=== PATIENT | female | born 1975 | race Caucasian/White ===

== ENCOUNTER 2016-09-22 10:46 | Emergency (ER) | payer MEDICAID ==
[2016-09-22 11:32] VITALS: TEMP 98.6; BMI 20.2
--- NOTE | 2016-09-22 12:39 | DIRPT ---
CLINICAL DATA: PIECE OF WOOD HIT THE MEDIAL SIDE OF HER LEFT ANKLE SEVERAL WEEKS AGO CAUSING PAIN AND BRUISING. YESTERDAY, PT TRIPPED OVER DAUGHTER AND HAD AN EXPLOSION OF PAIN GO THROUGH LEFT ANKLE. PAIN ON MEDIAL/POSTERIER SIDE OF LEFT ANKLE. EXAM: LEFT ANKLE COMPLETE - 3+ VIEW COMPARISON: None. FINDINGS: There is no evidence of fracture, dislocation, or joint effusion. There is no evidence of arthropathy or other focal bone abnormality. Soft tissues are unremarkable. No radiodense foreign body. IMPRESSION: Negative. Electronically Signed By: Sharonda Vicente M.D. On: 09/22/2016 12:37
--- NOTE | 2016-09-22 13:15 | EDPRACDOC ---
- General Information Chief Complaint: Ankle Pain Stated Complaint: L ANKLE PAIN Time Seen by Provider: 09/22/16 12:58 Information Source: Patient Mode of Arrival: Ambulance Home Medications: Home Medications Aripiprazole [Abilify] 10 mg PO DAILY 09/22/16 Atenolol/Chlorthalidone [Atenolol-Chlorthal Tab (50mg/25mg)] 1 tab PO DAILY 12/03 Gabapentin 300 mg PO TID 09/22/16 Meloxicam [Mobic] 7.5 mg PO BID #20 tab 09/22/16 Ondansetron HCl [Zofran] 8 mg PO BID 09/22/16 Quetiapine Fumarate [Seroquel] 50 mg PO QHS 09/22/16 Simvastatin 20 mg PO QHS 09/22/16 Tizanidine HCl [Zanaflex] 4 mg PO TID 09/22/16 Tramadol HCl [Ultram] 50 mg PO TID 09/22/16 Allergies/Adverse Reactions: Allergies Allergy/AdvReac Type Severity Reaction Status Date / Time No Known Allergies Allergy Verified 09/22/16 11:33 - History of Present Illness Onset: 2 WEEKS HPI: PT PRESENTS TODAY WITH LEFT ANKLE PAIN AND SWELLING X 2 WEEKS. PT STATES THAT SHE INVERTED IT 2 WEEKS AGO, THEN RE-INJURED IT LAST NIGHT. NO OTHER COMPLAINTS. Ankle Problem Location: Reports: Left, Lateral Mechanism: Reports: Inversion Circumstances: Reports: Fall Able to Bear Weight: Limited Pain Severity: Reports: Moderate Associated Signs & Symptoms: Reports: Swelling ED Past Medical History - History Reviewed Yes Nurses notes reviewed and agree except as marked - Patient Medical History Cardiac History: Reports: Hypertension GI/ History: Reports: Gastroesophageal Reflux Psychological History: Denies: Depression Additional Past Medical History: CHRONIC PAIN Surgical History: Reports: Cholecystectomy, Hysterectomy - Social Medical History Smoking Status: Heavy tobacco smoker (5 or more cigarettes/day or daily pipe/ cigar) EDM Review of Systems - Review of Systems ROS Negative Except as Marked: Yes All systems reviewed and were negative except as marked Constitutional: No Symptoms Reported Respiratory: No Symptoms Reported Cardiovascular: No Symptoms Reported Gastrointestinal: No Symptoms Reported Neurological: No Symptoms Reported Musculoskeletal: Ankle Integumentary: No Symptoms Reported - Physical Exam Constitutional: Alert (Awake), No apparent distress Oriented to: Time, Person, Place Last recorded Vital Signs: Last Vital Signs Temp 98.6 F 09/22/16 11:28 Pulse 121 H 09/22/16 11:28 Resp 18 09/22/16 11:28 BP 130/64 09/22/16 11:28 Pulse Ox 98 09/22/16 11:28 Oxygen Pulse Oxygen Saturation 98 O2 Device Room Air Oxygen Flow Rate Fraction of Inspired Oxygen ( FIO2) - HEENT Head: Normal Eye Exam: Normal Neck: Normal, Denies Pain, Midline - Respiratory/Cardiovascular Respiratory: Normal - CTA Cardiovascular: Normal - GI Palpation: Normal Tenderness: Non tender - Musculoskeletal Back: Normal Extremities: Other (MILD SWELLING TO LEFT ANKLE W/OUT APPARENT BRUISING/ DEFORMITY; PEDAL PULSES NORMAL;) - Integumentary Skin: Normal Lymphatics: Normal - Neurologic Cerebellar: Normal Mood Description: Normal Thought: Coherent Perception: Normal ED Ankle Problem Phys Exam - Musculoskeletal Ankle: Swelling, Moderate Tenderness Achilles Tendon: Normal Knee: Normal Lower Leg: Normal Foot: Normal Distal Function/Circulation: Normal - Integumentary Skin: Normal Lymphatics: Normal Decision Time to Discharge: 13:14 - Departure Disposition: Home Condition: Good Final Diagnosis: Ankle Sprain Instructions: RICE Therapy (ED) Education/Counseling Given To: Patient Education/Counseling Given Regarding: Diagnosis, Treatment, Follow Up Referrals: None,No Provider [Primary Care Provider] - One Week Larry Dominguez MD [Staff Physician] - One Week Prescriptions: New Meloxicam [Mobic] 7.5 mg PO BID #20 tab No Action Quetiapine Fumarate [Seroquel] 50 mg PO QHS Atenolol/Chlorthalidone [Atenolol-Chlorthal Tab (50mg/25mg)] 1 tab PO DAILY Aripiprazole [Abilify] 10 mg PO DAILY Tramadol HCl [Ultram] 50 mg PO TID Tizanidine HCl [Zanaflex] 4 mg PO TID Ondansetron HCl [Zofran] 8 mg PO BID Gabapentin 300 mg PO TID Simvastatin 20 mg PO QHS Additional Instructions: KEEP ANKLE WRAPPED AND ELEVATED WITH ICE. IF SYMPTOMS PERSIST DESPITE TODAYS TREATMENT, FOLLOW UP WITH ORTHO/PCP.
[2016-09-22 13:35] VITALS: BP 148/84; PULSE 103
== END 2016-09-22 13:32 | disposition home or self-care (01) ==
LOC: EDMC 10:46
DX: S93.409A Sprain of unspecified ligament of unspecified ankle, initial encounter (principal); X58.XXXA Exposure to other specified factors, initial encounter; Y93.9 Activity, unspecified
CPT/HCPCS: 99282